=== PATIENT | female | born 1965 | race Caucasian/White ===

== ENCOUNTER 2018-10-08 20:58 | Emergency (ER) | payer BC ==
[2018-10-08] MEDS ORDERED: LORazepam 1 MG Tab PO ONE (22:12)
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
== END 2018-10-08 23:21 | disposition home or self-care (01) ==
LOC: MW.ED 20:58
DX: F41.9 Anxiety disorder, unspecified (principal); Z88.1 Allergy status to other antibiotic agents; Z87.891 Personal history of nicotine dependence
CPT/HCPCS: 99283; A9270